=== PATIENT | male | born 1955 | race Caucasian/White ===

== ENCOUNTER 2023-11-15 20:12 | Inpatient (IN) | payer MEDICARE ==
[~2023-11-15] VITALS: Ht 180.3 cm; Wt 83.9 kg
[2023-11-15 20:13] VITALS: BP_SYST 131; PULSE 110; RESP 18; TEMP 97; O2SAT 98
[2023-11-15] MEDS: NACL 0.9% 2,000 ML IV ONE (21:20)
[2023-11-15 22:11] LABS: HEMATOCRIT 28.8 % (36-54); MEAN CORPUSCULAR HEMOGLOBIN 38 pg (27-31); MEAN CORPUSCULAR HGB CONC 35 % (32-36); MEAN CORPUSCULAR VOLUME 110 fL (79.0-98.0); PLATELET COUNT (AUTO) 259 K/uL (130-430); RED BLOOD CELL COUNT(AUTO) 2.61 MIL/uL (4.2-6.2); RED CELL DISTRIBUTION WIDTH 19.1 % (9.0-15.0); WHITE BLOOD COUNT (AUTO) 14.6 K/uL (4.8-10.8)
[2023-11-15 22:24] LABS: ANISOCYTOSIS 3+; BASOPHILS % (MANUAL) 0 % (0-2); EOSINOPHILS % (MANUAL) 0 % (0-7); LYMPHOCYTES % (MANUAL) 10 % (20-46); MONOCYTES % (MANUAL) 6 % (0-11); PLATELET ESTIMATE ADEQUATE (ADEQUATE)
[2023-11-15 22:38] LABS: ALANINE AMINOTRANSFERASE 43 U/L (12-78); ALBUMIN 1.3 g/dL (3.4-4.8); ANION GAP 15 (5-15); ASPARTATE AMINOTRANSFERASE 48 U/L (10-37); BILIRUBIN,DIRECT 0.4 mg/dL (0.0-0.3); CALCIUM 8.1 mg/dL (8.4-11.0); CARBON DIOXIDE 24 mmol/L (23-29); CHLORIDE 95 mmol/L (98-107); GFR AFRICAN AMERICAN 8 mL/min (>90); GLUCOSE 101 mg/dL (74-106); PHOSPHORUS 10.7 mg/dL (2.7-4.5); POTASSIUM 3.1 mmol/L (3.5-5.1); SODIUM SERUM 134 mmol/L (136-145); TOTAL BILIRUBIN 0.6 mg/dL (0.0-1.0); TOTAL PROTEIN, SERUM 5.4 g/dL (6.4-8.3); UREA NITROGEN, BLOOD 55 mg/dL (8-21)
[2023-11-15] MEDS ORDERED: levETIRAcetam 1,000 MG IV BAG 100 ML IV ONE ×2 (22:45→23:15)
[2023-11-15 22:52] LABS: GFR NON AFRICAN-AMERICAN 7 mL/min (>90)
[2023-11-15 22:53] LABS: CREATININE 8.17 mg/dL (0.55-1.30)
[2023-11-15] MEDS ORDERED: CEFEPIME 1 GM/VIAL (MAXIPIME) ONE (23:03)
[2023-11-15] MEDS: CEFEPIME 1 GM in D5W 50 ML IV ONE (23:08)
[2023-11-15] MEDS: levETIRAcetam 500 MG IV PREMIX 100 ML IV ONE ×2 (23:20→23:53)
[2023-11-15] MEDS ORDERED: LORazepam 2 MG/ML VIAL IVP PRN (23:30)
[2023-11-15] MEDS ORDERED: IPRATROPIUM BROM 0.5 MG/2.5 ML VIAL.NEB (ATROVENT) INH PRN (23:30)
[2023-11-15] MEDS ORDERED: ALBUTEROL SULFATE 0.083% 2.5 MG/3 ML VIAL.NEB INH PRN (23:30)
[2023-11-15] MEDS ORDERED: HYDROcodone/ACETAMIN 5-325 MG TAB (NORCO/ VICODIN) PO PRN (23:30)
[2023-11-15] MEDS ORDERED: HYDROcodone/ACETAMIN 10-325 MG TAB PO PRN (23:30)
[2023-11-15] MEDS ORDERED: ACETAMINOPHEN 325 MG TABLET PO PRN (23:30)
[2023-11-15] MEDS ORDERED: VANCOMYCIN HCL 1000 MG/VIAL IV ONE (23:45)
[2023-11-15] MEDS: VANCOMYCIN HCL 1,000 MG in NS 250 ML IV ONE (23:52)
[2023-11-16] VITALS (8 sets, daily range): BP systolic 85–106; PULSE 81–89; RESP 16–18; TEMP 97.2–98.7; O2SAT 94–99
[2023-11-16 07:21] LABS: BILIRUBIN,URINE 2+ (NEGATIVE); COLOR,URINE BROWN (YELLOW); GLUCOSE,URINE NEGATIVE (NEGATIVE); KETONES,URINE TRACE (NEGATIVE); LEUKOCYTE ESTERASE ,URINE TRACE (NEGATIVE); NITRITE, URINE NEGATIVE (NEGATIVE); PROTEIN URINE TRACE (NEGATIVE); UROBILINOGEN,URINE 0.2 (0.2-1.0)
[2023-11-16 07:44] LABS: BLOOD, URINE TRACE (NEGATIVE); CLARITY/URINE SLIGHTLY HAZY (CLEAR)
[2023-11-16 09:06] LABS: BACTERIA,URINE FEW /HPF (None Seen)
[2023-11-16 09:19] LABS: BASOPHILS # (AUTO) 0.1 K/uL (0.0-0.2); EOSINOPHILS # (AUTO) 0.2 K/uL (0.0-0.4); EOSINOPHILS % (AUTO) 1.6 % (0.0-4.0); HEMATOCRIT 27.7 % (36-54); HEMOGLOBIN 9.5 g/dL (14.0-18.0); LYMPHOCYTES # (AUTO) 1.1 K/uL (1.0-5.5); LYMPHOCYTES % (AUTO) 9.2 % (20.5-51.5); MEAN CORPUSCULAR HEMOGLOBIN 38 pg (27-31); MEAN CORPUSCULAR HGB CONC 34 % (32-36); MEAN CORPUSCULAR VOLUME 112 fL (79.0-98.0); MONOCYTES # (AUTO) 1.2 K/uL (0.0-1.0); MONOCYTES % (AUTO) 9.5 % (1.7-9.3); NEUTROPHILS # (AUTO) 9.5 K/uL (1.8-7.7); PLATELET COUNT (AUTO) 249 K/uL (130-430); RED BLOOD CELL COUNT(AUTO) 2.48 MIL/uL (4.2-6.2); RED CELL DISTRIBUTION WIDTH 19.1 % (9.0-15.0); WHITE BLOOD COUNT (AUTO) 12.1 K/uL (4.8-10.8)
[2023-11-16 09:24] LABS: NEUTROPHILS % (AUTO) 78.7 % (40.0-70.0)
[2023-11-16 09:40] LABS: CALCIUM 8.1 mg/dL (8.4-11.0); PHOSPHORUS 10.3 mg/dL (2.7-4.5); POTASSIUM 3.1 mmol/L (3.5-5.1)
[2023-11-16 09:49] LABS: CREATININE 7.98 mg/dL (0.55-1.30)
[2023-11-16] MEDS: MORPHINE SULFATE 10 MG/5 ML ORAL SOL. UDC PO PRN (13:14)
[2023-11-16] MEDS: levETIRAcetam 500 MG TABLET PO ONE (13:15)
[2023-11-16] MEDS: cefTRIAXone 1 GM in D5W 50 ML IV SCH (13:15)
[2023-11-16] MEDS: ONDANSETRON HCL 4 MG/2 ML VIAL IVP PRN (20:34)
[2023-11-16] MEDS ORDERED: ATORVASTATIN 20 MG TABLET PO SCH (21:00)
[2023-11-16] MEDS ORDERED: levETIRAcetam 500 MG TABLET PO SCH (21:00)
[2023-11-16] MEDS ORDERED: APIXABAN 2.5 MG TABLET PO SCH (21:00)
== END 2023-11-16 20:47 | disposition short-term general hospital (02) | DRG 100 ==
LOC: SED 20:12 → STU 23:21
PROVIDERS: ADMIT Internal Medicine; ATTEND Internal Medicine
PROC: 4A00X4Z Measurement of Central Nervous Electrical Activity, External Approach (ICD-10-PCS; principal; 2023-11-16)
DX: R56.9 Unspecified convulsions (principal); N18.6 End stage renal disease; I12.0 Hypertensive chronic kidney disease with stage 5 chronic kidney disease or end stage renal disease; I25.10 Atherosclerotic heart disease of native coronary artery without angina pectoris; I95.9 Hypotension, unspecified; E11.22 Type 2 diabetes mellitus with diabetic chronic kidney disease; Z85.038 Personal history of other malignant neoplasm of large intestine; Z79.899 Other long term (current) drug therapy; I25.2 Old myocardial infarction; Z95.1 Presence of aortocoronary bypass graft; Z88.0 Allergy status to penicillin
CPT/HCPCS: 36415; 70450-TC; 71045; 80048; 80076; 81000; 81001; 81015; 83605; 83735; 84100; 84484; 85007; 85025; 85027; 87040; 87086; 93306; 95816; 99291; G0378; J0692; J0696; J1953; J2405; J3370; J7060